=== PATIENT | male | born 1965 | race Caucasian/White ===

== ENCOUNTER 2017-06-16 15:02 | Inpatient (IN) | payer OTHER ==
--- NOTE | 2017-06-16 15:27 | PDOC ---
Rapid Medical Evaluation Time Seen by Provider: 06/16/17 15:12 Medical Evaluation: 06/16/17 15:27 The patient presents with a chief complaint of: ?peritonsillar abscess I have performed a brief in-person evaluation of this patient. Pertinent physical exam findings: vss, difficulty speaking, sent by dr. farr I have ordered the following: cbc, cmp The patient will proceed to the ED for further evaluation. 06/16/17 15:29
[2017-06-16 15:33] VITALS: BMI 31.8
--- NOTE | 2017-06-16 16:14 | PDOC ---
Attending Attestation - Resident Resident Name: Eddy Beatty - ED Attending Attestation I have performed the following: I have examined & evaluated the patient, The case was reviewed & discussed with the resident, I agree w/resident's findings & plan, Exceptions are as noted - HPI HPI: 06/16/17 17:58 Mr Abdullahi is a 51 yo M with h/o HTN and seizure disorder who presents to the ER from ENT's office Briefly, he developed a sore throat x 2 days. (+) dysphagia, (+) muffled voice, (+) unable to tolerate secretions Denies F/C He was seen at the urgent care today, sent to ENT Upon evaluation of ENT, he was sent to the ER for IV abx - Physicial Exam PE: 06/16/17 18:01 GENERAL: The patient is in no acute distress. ENT: Trismus, left tonsillar pillar fullness/erythema Ears normal, nares patent, Muffled voice NECK: Normal range of motion, supple, (+) LAD LUNGS: Breath sounds equal, clear to auscultation bilaterally. No wheezes, and no crackles. HEART:Regular rate and rhythm, normal S1 and S2 without murmur ABDOMEN: Soft, nontender - Medical Decision Making 06/16/17 18:02 51-year-old male presented to emergency department due to clinical examination consistent with peritonsillar abscess Patient referred to the hospital for admission and IV antibiotics Plan Labs Blood culture IV fluids Tylenol, Decadron Antibiotics CT soft tissue Admission
--- NOTE | 2017-06-16 16:25 | PDOC ---
History of Present Illness - General Chief Complaint: Edema Stated Complaint: THROAT PAIN (PCP SENT) Time Seen by Provider: 06/16/17 15:12 - History of Present Illness Initial Comments: 06/16/17 16:54 51 yo M with h/o HTN and seizure disorder p/w sore throat. Pt. reports development of severe, burning, sore throat within the past two days. Endorses dysphagia and decreased PO intake. States that he has been unable to tolerate oral secretions over night with increased cough, worsening neck swelling, muffled voice, and clear sputum production. Reports increased airway closure. Symptoms not improved with oral lozenges. Denies F/C, N/V,, trismus, abnormal taste, pus, airway closure, wheezing, SOB, chest pain, or lightheadedness. Reports going to urgent care today and referred to ENT ( Dr. farr today) with scope and subsequent referall to ED for IV antibiotic management. Patient currently not on antibiotic management. Recent influenza recovery. Reports similar h/o tonsilar abscess/swelling years ago. Denies N/V, F/C, CP, SOB, abdominal pain, diarrhea, constipation, urinary complaints, lightheadedness, weakness. Past History - Past Medical History Allergies/Adverse Reactions: Allergies Allergy/AdvReac Type Severity Reaction Status Date / Time Penicillins Allergy Unknown Verified 06/16/17 15:28 Home Medications: Ambulatory Orders Divalproex [Depakote -] 750 mg PO BID 06/16/17 Losartan/Hydrochlorothiazide [Losartan-Hctz 100-25 mg Tab] 1 each PO DAILY 06/16 COPD: No HTN: Yes Seizures: Yes - Immunization History Immunization Up to Date: Yes - Suicide/Smoking/Psychosocial Hx Smoking History: Never smoked Review of Systems - Review of Systems Comments:: 06/16/17 16:23 GENERAL/CONSTITUTIONAL: No fever or chills. No weakness. HEAD, EYES, EARS, NOSE AND THROAT:+ sore throat and ear pain/pressure. No change in vision. CARDIOVASCULAR: No chest pain or shortness of breath RESPIRATORY: + Cough. No wheezing, or hemoptysis. GASTROINTESTINAL: No nausea, vomiting, diarrhea or constipation. GENITOURINARY: No dysuria, frequency, or change in urination. MUSCULOSKELETAL: No joint or muscle swelling or pain. No neck or back pain. SKIN: No rash NEUROLOGIC: No headache, vertigo, loss of consciousness, or change in strength/ sensation. ENDOCRINE: No increased thirst. No abnormal weight change HEMATOLOGIC/LYMPHATIC: No anemia, easy bleeding, or history of blood clots. ALLERGIC/IMMUNOLOGIC: No hives or skin allergy. *Physical Exam - Vital Signs Last Vital Signs Temp Pulse Resp BP Pulse Ox 98.5 F 87 18 136/98 98 06/16/17 15:10 06/16/17 15:10 06/16/17 15:10 06/16/17 15:10 06/16/17 15:10 - Physical Exam Comments: 06/16/17 16:23 GENERAL: Awake, alert, and fully oriented, in no acute distress HEAD: No signs of trauma, normocephalic, atraumatic EYES: PERRLA, EOMI, sclera anicteric, conjunctiva clear ENT: Auricles normal inspection, hearing grossly normal, nares patent, oropharynx clear without exudates. Moist mucosa Throat: Slightly erythematous posterior oropharynx, with right BL tonsillar swelling, and absent uvula deviation. Absent drainage or exudate. Moist mucosa. NECK: + BL lymphadenopathy zone II of neck. Normal ROM, supple, JVD, or masses LUNGS: No distress, speaks full sentences, clear to auscultation bilaterally HEART: Regular rate and rhythm, normal S1 and S2, no murmurs, rubs or gallops, peripheral pulses normal and equal bilaterally. ABDOMEN: Soft, nontender, normoactive bowel sounds. No guarding, no rebound. No masses EXTREMITIES : Normal inspection, Normal range of motion, no edema. No clubbing or cyanosis. SKIN: Warm, Dry, normal turgor, no rashes or lesions noted ED Treatment Course - LABORATORY CBC & Chemistry Diagram: 06/16/17 17:05 06/16/17 17:05 Medical Decision Making - Medical Decision Making 06/16/17 16:25 51 yo M with h/o HTN and seizure disorder p/w development of severe, burning, sore throat within the past two days. Endorses dysphagia, decreased PO intake, and inability to tolerate oral secretions over night with increased cough, worsening neck swelling, and clear sputum production. Denies F/C, N/V, muffled voice, trismus, abnormal taste, pus, airway closure, wheezing, SOB, chest pain, or lightheadedness. Reports going to urgent care today and referred to ENT ( Dr. farr today) with scope and subsequent referral to ED for IV antibiotic management. Patient currently not on antibiotic management. Recent influenza recovery. Reports similar h/o tonsilar abscess/swelling years ago. Physical exam notable for slightly erythematous posterior oropharynx, with right BL tonsillar swelling, and absent uvula deviation. Bl zone 2 neck lymphadenopathy. Physical exam concerning for peritonsilar abscess. Will obtain imaging. 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 Centor criteria -1 points. Low suspicion of streptococcal pharyngitis. PMD not on staff. DDx: peritonsilar abscess, tonsillitis ED Course CBC, CMP, Rapid strep UA EKG, CXR, CT NECK SOFT TISSUE W/CON Cetacaine, NS, Tylenol, Zofran, Dexamethasone, IV Clindamycin 600 mg EKG: NSR with absent SUMAYA, STD, or TWI. Normal interval duration and axis. 06/16/17 17:13 WBC: 10.[address] neumann contacted and request sent for physician to physician callback [phone] 06/16/17 18:14 Dr. kirk asx of dr neumann agrees w/ plan and will come see pt tomorrow. 06/16/17 18:38 CXR: Unremarkable Patient admitted to inpt. med/surg dr. Bai. Consulted Dr. Patrick. *DC/Admit/Observation/Transfer Diagnosis at time of Disposition: Swelling of pharynx - Discharge Dispostion Admit: Yes - Referrals Referrals: ON STAFF,NOT [Primary Care Provider] - - Patient Instructions Additional Instructions: Please return to the emergency department with any new or worsening symptoms or concerns. Please follow up with your primary care physician within 72 hours. - Post Discharge Activity - Attestations Physician Attestion: 06/16/17 16:24 I attest to the information provided in this note.
[2017-06-16] MEDS ORDERED: SODIUM CHLORIDE 1,000 ML IV STA (17:06)
[2017-06-16] MEDS ORDERED: DEXAMETHASONE SOD PHOSPHATE 10 MG/1 ML VIAL IVPUSH ONE (17:06)
[2017-06-16] MEDS ORDERED: TETRACAINE/BENZOCAINE/BUTAMBEN 20 GM SPR TP ONE ×2 (17:09→18:59)
[2017-06-16] MEDS ORDERED: ONDANSETRON 4 MG/2 ML VIAL IVPUSH ONE (17:09)
[2017-06-16] MEDS ORDERED: ACETAMINOPHEN 1000 MG/100 ML VIAL (NON FORMULARY) IVPB ONE (17:09)
[2017-06-16 17:14] LABS: BASO % 0.3 % (0-2.0); EOS % 2.3 % (0-4.5); HEMATOCRIT 41.8 % (35.4-49); HEMOGLOBIN 14.3 GM/dL (11.7-16.9); LYMPH % 19.2 % (8-40); MCH 30.5 pg (25.7-33.7); MCHC 34.2 g/dl (32.0-35.9); MEAN CELL VOLUME 89.2 fl (80-96); MEAN PLT VOLUME 7.9 fl (7.5-11.1); MONO % 8.6 % (3.8-10.2); NEUT % 69.6 % (42.8-82.8); PLATELET COUNT 265 K/MM3 (134-434); RBC 4.68 M/mm3 (4.00-5.60); RDW 14.3 % (11.9-15.9); WHITE BLOOD COUNT 10.3 K/mm3 (4.0-10.0)
[2017-06-16] MEDS ORDERED: DEXAMETHASONE SOD PHOSPHATE 10 MG/1 ML VIAL ONE (17:24)
[2017-06-16] MEDS ORDERED: ACETAMINOPHEN INJECTION 100 ML IVPB ONE (17:24)
[2017-06-16] MEDS ORDERED: ONDANSETRON 4 MG/2 ML VIAL ONE (17:25)
[2017-06-16] MEDS ORDERED: CLINDAMYCIN 900 MG PREMIX IVPB 900 MG/50 ML BAG IVPB ONE ×2 (17:34→17:45)
[2017-06-16 17:42] LABS: ALBUMIN 3.8 g/dl (3.4-5.0); ALK PHOS 74 U/L (45-117); ANION GAP 6 (8-16); BILIRUBIN,TOTAL 0.3 mg/dL (0.2-1.0); BLOOD UREA NITROGEN 16 mg/dL (7-18); CHLORIDE 105 mmol/L (98-107); CO2 29 mmol/L (21-32); GLUCOSE,RANDOM 78 mg/dL (74-106); POTASSIUM 4.1 mmol/L (3.5-5.1); SGOT/AST 20 U/L (15-37); SGPT/ALT 40 U/L (12-78); SODIUM 140 mmol/L (136-145); TOT PROT 8.6 g/dl (6.4-8.2)
[2017-06-16 17:56] LABS: URINE APPEARANCE CLEAR; URINE BILIRUBIN NEGATIVE (<2.0 mg/dL); URINE BLOOD 1+ (NEGATIVE); URINE COLOR YELLOW; URINE GLUCOSE (UA) NEGATIVE (NEGATIVE); URINE KETONE NEGATIVE (NEGATIVE); URINE LEUK ESTERASE NEGATIVE (NEGATIVE); URINE NITRITE NEGATIVE (NEGATIVE); URINE PROTEIN NEGATIVE (NEGATIVE); URINE UROBILINOGEN NEGATIVE mg/dL (0.2-1.0)
[2017-06-16 18:02] LABS: EPI CELLS RARE /HPF (FEW); URINE MUCUS RARE
--- NOTE | 2017-06-16 20:18 | HP ---
Admitting History and Physical - Primary Care Physician PCP: Sharon Bai - Admission Chief Complaint: sore throat History of Present Illness: 51 yo M with h/o HTN and seizure disorder p/w sore throat. Pt. reports development of severe, burning, sore throat within the past two days. Endorses dysphagia and decreased PO intake. States that he has been unable to tolerate oral secretions over night with increased cough, worsening neck swelling, muffled voice, and clear sputum production. Reports increased airway closure. Symptoms not improved with oral lozenges. Reports going to urgent care today and referred to ENT ( Dr. farr today) with scope and subsequent referall to ED for IV antibiotic management. Patient currently not on antibiotic management. Recent influenza recovery. Reports similar h/o tonsilar abscess/ swelling years ago. 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: HTN - Smoking History Smoking history: Never smoked Home Medications - Allergies Allergies/Adverse Reactions: Allergies Allergy/AdvReac Type Severity Reaction Status Date / Time Penicillins Allergy Unknown Verified 06/16/17 15:28 - Home Medications Home Medications: Ambulatory Orders Divalproex [Depakote -] 750 mg PO BID 06/16/17 Losartan/Hydrochlorothiazide [Losartan-Hctz 100-25 mg Tab] 1 each PO DAILY 06/16 Clindamycin [Cleocin -] 300 mg PO Q6HPO #28 capsule 06/18/17 Prednisone 10 mg PO DAILY #30 tablet 06/18/17 Physical Examination Vital Signs: Vital Signs Temperature 98.5 F 06/16/17 15:10 Pulse Rate 74 06/16/17 19:32 Respiratory Rate 18 06/16/17 19:32 Blood Pressure 139/80 06/16/17 19:32 O2 Sat by Pulse Oximetry (%) 96 06/16/17 19:34 Constitutional: Yes: No Distress HENT: Yes: Other (cant open mouth much so cant see back of the throat) Neck: Yes: Supple Cardiovascular: Yes: Regular Rate and Rhythm Gastrointestinal: Yes: Normal Bowel Sounds Extremities: Yes: WNL Edema: No Peripheral Pulses WNL: Yes Labs: CBC, BMP 06/16/17 17:05 06/16/17 17:05 Problem List - Problems (1) Acute tonsillitis Assessment/Plan: iv abx full liquid diet iv steroids id and ent consult Code(s): J03.90 - ACUTE TONSILLITIS, UNSPECIFIED Qualifiers: Pharyngitis/tonsillitis etiology: streptococcus (2) Swelling of pharynx Code(s): J39.2 - OTHER DISEASES OF PHARYNX Assessment/Plan Laboratory Tests 06/16/17 06/16/17 06/16/17 17:05 17:05 17:32 WBC 10.3 H RBC 4.68 Hgb 14.3 Hct 41.8 MCV 89.2 MCH 30.5 MCHC 34.2 RDW 14.3 Plt Count 265 MPV 7.9 Neutrophils % 69.6 Lymphocytes % 19.2 Monocytes % 8.6 Eosinophils % 2.3 Basophils % 0.3 Sodium 140 Potassium 4.1 Chloride 105 Carbon Dioxide 29 Anion Gap 6 L BUN 16 Creatinine 1.0 Creat Clearance w eGFR > 60 Random Glucose 78 Calcium 9.0 Total Bilirubin 0.3 AST 20 ALT 40 Alkaline Phosphatase 74 Total Protein 8.6 H Albumin 3.8 Urine Color Yellow Urine Appearance Clear Urine pH 6.0 Ur Specific [place] 1.015 Urine Protein Negative Urine Glucose (UA) Negative Urine Ketones Negative Urine Blood 1+ H Urine Nitrite Negative Urine Bilirubin Negative Urine Urobilinogen Negative Ur Leukocyte Esterase Negative Urine WBC (Auto) <1 Urine RBC (Auto) <1 Ur Epithelial Cells Rare Urine Mucus Rare Active Medications Generic Name Dose Route Start Last Admin Trade Name Freq PRN Reason Stop Dose Admin Acetaminophen 650 mg 06/16/17 20:34 Tylenol Oral Solution - PO Q6H PRN pain Clindamycin Phosphate 300 mg in 50 mls @ 100 mls/hr 06/16/17 21:00 06/18/17 15:59 Cleocin 300 Mg Premix Ivpb IVPB 100 mls/hr Q6H-IV CHAPARRITA Administration Methylprednisolone Sodium Succinate 60 mg 06/18/17 22:00 Solu-Medrol - IVPUSH BID CHAPARRITA
[2017-06-16] MEDS ORDERED: ACETAMINOPHEN 650 MG/20.3 ML ORAL SOLUTION (CUPS) PO PRN (20:34)
[2017-06-16] MEDS: CLINDAMYCIN 300 MG PREMIX IVPB 300 MG/50 ML BAG IVPB SCH (22:11)
[2017-06-16] MEDS: methylPREDNISolone NA SUCC 40 MG/1 ML VIAL IVPUSH SCH (23:24)
[2017-06-17] MEDS: methylPREDNISolone NA SUCC 40 MG/1 ML VIAL IVPUSH SCH ×4 (02:28→20:44)
[2017-06-17] MEDS: CLINDAMYCIN 300 MG PREMIX IVPB 300 MG/50 ML BAG IVPB SCH ×4 (02:29→20:44)
[2017-06-17] MEDS ORDERED: INSULIN DETEMIR 100 UNITS/ML MDV SQ ONE (07:05)
[2017-06-17 07:59] LABS: BASO % 0.5 % (0-2.0); HEMATOCRIT 42.3 % (35.4-49); HEMOGLOBIN 14.2 GM/dL (11.7-16.9); LYMPH % 12.5 % (8-40); MCH 29.9 pg (25.7-33.7); MCHC 33.5 g/dl (32.0-35.9); MEAN CELL VOLUME 89.1 fl (80-96); MEAN PLT VOLUME 7.8 fl (7.5-11.1); MONO % 1.2 % (3.8-10.2); NEUT % 85.8 % (42.8-82.8); PLATELET COUNT 279 K/MM3 (134-434); RBC 4.75 M/mm3 (4.00-5.60); RDW 13.9 % (11.9-15.9); WHITE BLOOD COUNT 10.2 K/mm3 (4.0-10.0)
[2017-06-17 08:13] LABS: CHLORIDE 108 mmol/L (98-107); POTASSIUM 4.5 mmol/L (3.5-5.1); SODIUM 141 mmol/L (136-145)
[2017-06-17 08:27] LABS: ALBUMIN 3.3 g/dl (3.4-5.0); ALK PHOS 74 U/L (45-117); ANION GAP 7 (8-16); BILIRUBIN,TOTAL 0.3 mg/dL (0.2-1.0); BLOOD UREA NITROGEN 15 mg/dL (7-18); CALCIUM 8.5 mg/dL (8.5-10.1); CO2 26 mmol/L (21-32); CREATININE 0.9 mg/dL (0.7-1.3); GLUCOSE,RANDOM 134 mg/dL (74-106); SGOT/AST 14 U/L (15-37); SGPT/ALT 34 U/L (12-78); TOT PROT 8.2 g/dl (6.4-8.2)
[2017-06-17] MEDS ORDERED: PT OWN MED DRAWER 7, Y5N ONE ×2 (09:25→16:07)
--- NOTE | 2017-06-17 13:30 | PN ---
Progress Note, Physician - Current Medication List Current Medications: Active Medications Acetaminophen (Tylenol Oral Solution -) 650 mg PO Q6H PRN PRN Reason: pain Clindamycin Phosphate (Cleocin 300 Mg Premix Ivpb) 300 mg in 50 mls @ 100 mls/ hr IVPB Q6H-IV CHAPARRITA Last Admin: 06/17/17 09:38 Dose: 100 mls/hr Methylprednisolone Sodium Succinate (Solu-Medrol -) 60 mg IVPUSH Q6H-IV CHAPARRITA Last Admin: 06/17/17 09:38 Dose: 60 mg - Objective Vital Signs: Vital Signs Temperature 98.6 F 06/17/17 09:00 Pulse Rate 83 06/17/17 09:00 Respiratory Rate 18 06/17/17 09:00 Blood Pressure 142/50 06/17/17 09:00 O2 Sat by Pulse Oximetry (%) 97 06/17/17 09:00 Labs: CBC, BMP 06/17/17 06:20 06/17/17 06:20
--- NOTE | 2017-06-17 17:17 | PN ---
Progress Note, Physician - Current Medication List Current Medications: Active Medications Acetaminophen (Tylenol Oral Solution -) 650 mg PO Q6H PRN PRN Reason: pain Clindamycin Phosphate (Cleocin 300 Mg Premix Ivpb) 300 mg in 50 mls @ 100 mls/ hr IVPB Q6H-IV CHAPARRITA Last Admin: 06/17/17 16:09 Dose: 100 mls/hr Methylprednisolone Sodium Succinate (Solu-Medrol -) 60 mg IVPUSH Q6H-IV CHAPARRITA Last Admin: 06/17/17 16:09 Dose: 60 mg - Objective Vital Signs: Vital Signs Temperature 97.3 F L 06/17/17 14:08 Pulse Rate 88 06/17/17 14:08 Respiratory Rate 22 06/17/17 14:08 Blood Pressure 131/64 06/17/17 14:08 O2 Sat by Pulse Oximetry (%) 97 06/17/17 09:00 Constitutional: Yes: No Distress HENT: Yes: Other (throat able to see a little red and inflammed more on left side) Cardiovascular: Yes: Regular Rate and Rhythm Respiratory: Yes: CTA Bilaterally Gastrointestinal: Yes: Normal Bowel Sounds Extremities: Yes: WNL Neurological: Yes: Alert, Oriented Labs: CBC, BMP 06/17/17 06:20 06/17/17 06:20 Problem List - Problems (1) Acute tonsillitis Assessment/Plan: iv abx iv steroids soft diet \clinically improving Code(s): J03.90 - ACUTE TONSILLITIS, UNSPECIFIED Qualifiers: Pharyngitis/tonsillitis etiology: streptococcus (2) Swelling of pharynx Code(s): J39.2 - OTHER DISEASES OF PHARYNX
--- NOTE | 2017-06-17 18:23 | CON.ENT ---
Consult Consult Specialty:: ENT Reason for Consultation:: Sore throat/trouble swallowing - History of Present Illness Chief Complaint: Severe sore throat/trouble swallowing secretions History of Present Illness: 51 yo male who developed worsening sore throat, trouble swallowing and hot- potato voice over the weekend. He was seen by me in the office yesterday at which time i sent him to the ER for IV antibiotics/steroids/hydration for an acute tonsillitis. He had peritonsillar cellulitis(L>R) and a patent airway. He is feeling much better since on Clinda and Medrol. 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: Yes: HTN - Alcohol/Substance Use Hx Alcohol Use: No - Smoking History Smoking history: Never smoked Home Medications - Allergies Allergies/Adverse Reactions: Allergies Allergy/AdvReac Type Severity Reaction Status Date / Time Penicillins Allergy Unknown Verified 06/16/17 15:28 - Home Medications Home Medications: Ambulatory Orders Divalproex [Depakote -] 750 mg PO BID 06/16/17 Losartan/Hydrochlorothiazide [Losartan-Hctz 100-25 mg Tab] 1 each PO DAILY 06/16 Review of Systems - Review of Systems HENT: reports: Difficult Swallowing, Throat Pain Neck: reports: Swollen Glands, Tenderness Physical Exam-ENT Vital Signs: Vital Signs Temperature 97.3 F L 06/17/17 14:08 Pulse Rate 88 06/17/17 14:08 Respiratory Rate 22 06/17/17 14:08 Blood Pressure 131/64 06/17/17 14:08 O2 Sat by Pulse Oximetry (%) 97 06/17/17 09:00 Constitutional: Yes: Well Nourished, No Distress Face: Yes: WNL Eyes: Yes: WNL Nose: Yes: Septum Deviated Nasal Passage: Yes: WNL Oral/Pharynx: Yes: Enlarged Tonsils, Other (decreased soft palate and tonsillar edema, uvula midline) Outer Ear: Yes: WNL Ear Canal: Yes: WNL Neck: Yes: Lymphadenopathy, Tenderness Respiratory: Yes: WNL Neurological: Yes: Cran Nerves II-XII Intact Imaging - Results Cat Scan: Report Reviewed, Image Reviewed Problem List - Problems (1) Acute tonsillitis Assessment/Plan: Pt feeling much better since receiving IV meds, less peritonsillar swelling, swallowing and voice improved, taking PO well and tolerating secretions. Can send patient home in the AM on PO Clinda with ENT follow-up in the office in 2- 3 days. Code(s): J03.90 - ACUTE TONSILLITIS, UNSPECIFIED Qualifiers: Pharyngitis/tonsillitis etiology: streptococcus
[2017-06-18] MEDS: methylPREDNISolone NA SUCC 40 MG/1 ML VIAL IVPUSH SCH ×3 (02:20→15:59)
[2017-06-18] MEDS: CLINDAMYCIN 300 MG PREMIX IVPB 300 MG/50 ML BAG IVPB SCH ×3 (02:24→15:59)
[2017-06-18] MEDS ORDERED: PT OWN MED DRAWER 7, Y5N ONE ×2 (10:09→15:54)
--- NOTE | 2017-06-18 11:47 | CON.ID ---
Consult Consult Specialty:: infectious diseases Reason for Consultation:: throat swelling ,inability to swallow - History of Present Illness Chief Complaint: swelling of the throat History of Present Illness: 51 yo male who developed worsening sore throat, trouble swallowing and hot- potato voice over the weekend. patient went to the ent and was evaluated and was send to the hospital and for iv abx / He had peritonsillar cellulitis(L>R) and a patent airway. He is feeling much better since on Clinda and Medrol. 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/Vascular: Yes: HTN - Alcohol/Substance Use Hx Alcohol Use: No - Smoking History Smoking history: Never smoked Home Medications - Allergies Allergies/Adverse Reactions: Allergies Allergy/AdvReac Type Severity Reaction Status Date / Time Penicillins Allergy Unknown Verified 06/16/17 15:28 - Home Medications Home Medications: Ambulatory Orders Divalproex [Depakote -] 750 mg PO BID 06/16/17 Losartan/Hydrochlorothiazide [Losartan-Hctz 100-25 mg Tab] 1 each PO DAILY 06/16 Review of Systems - Review of Systems Constitutional: reports: No Symptoms Eyes: reports: No Symptoms HENT: reports: No Symptoms Neck: reports: No Symptoms Cardiovascular: reports: No Symptoms Respiratory: reports: No Symptoms Gastrointestinal: reports: Other (sore throat and swallowing difficuilty) Musculoskeletal: reports: No Symptoms Integumentary: reports: No Symptoms Neurological: reports: No Symptoms Endocrine: reports: No Symptoms Hematology/Lymphatic: reports: No Symptoms Psychiatric: reports: No Symptoms Physical Exam Vital Signs: Vital Signs Temperature 97.8 F 06/18/17 06:00 Pulse Rate 69 06/18/17 06:00 Respiratory Rate 20 06/18/17 06:00 Blood Pressure 144/94 06/18/17 06:00 O2 Sat by Pulse Oximetry (%) 98 06/17/17 21:00 Constitutional: Yes: Well Nourished, Calm, Mild Distress Eyes: Yes: Conjunctiva Clear Neck: Yes: Other (sore throat) Cardiovascular: Yes: Regular Rate and Rhythm Respiratory: Yes: Regular, Other (sore throat) Gastrointestinal: Yes: Normal Bowel Sounds, Soft Musculoskeletal: Yes: WNL Extremities: Yes: WNL Neurological: Yes: Alert, Oriented Psychiatric: Yes: Alert, Oriented Labs: CBC, BMP 06/17/17 06:20 06/17/17 06:20 Imaging - Results Cat Scan: Report Reviewed, Image Reviewed Assessment/Plan Problem List - Problems (1) Acute tonsillitis Code(s): J03.90 - ACUTE TONSILLITIS, UNSPECIFIED Qualifiers: Pharyngitis/tonsillitis etiology: streptococcus plan patient stable doing well throat improving continue clinda
--- NOTE | 2017-06-18 12:08 | PN ---
Progress Note, Physician History of Present Illness: patient doing well says swallowing better still with swallowing difficulty - Current Medication List Current Medications: Active Medications Acetaminophen (Tylenol Oral Solution -) 650 mg PO Q6H PRN PRN Reason: pain Clindamycin Phosphate (Cleocin 300 Mg Premix Ivpb) 300 mg in 50 mls @ 100 mls/ hr IVPB Q6H-IV CHAPARRITA Last Admin: 06/18/17 10:14 Dose: 100 mls/hr Methylprednisolone Sodium Succinate (Solu-Medrol -) 60 mg IVPUSH Q6H-IV CHAPARRITA Last Admin: 06/18/17 10:15 Dose: 60 mg - Objective Vital Signs: Vital Signs Temperature 97.8 F 06/18/17 06:00 Pulse Rate 69 06/18/17 06:00 Respiratory Rate 20 06/18/17 06:00 Blood Pressure 144/94 06/18/17 06:00 O2 Sat by Pulse Oximetry (%) 98 06/17/17 21:00 Constitutional: Yes: No Distress, Calm Cardiovascular: Yes: Regular Rate and Rhythm Respiratory: Yes: Regular, CTA Bilaterally Gastrointestinal: Yes: Normal Bowel Sounds, Soft Musculoskeletal: Yes: WNL Extremities: Yes: WNL Neurological: Yes: Alert, Oriented Labs: CBC, BMP 06/17/17 06:20 06/17/17 06:20 Assessment/Plan Problem List - Problems (1) Acute tonsillitis Code(s): J03.90 - ACUTE TONSILLITIS, UNSPECIFIED Qualifiers: Pharyngitis/tonsillitis etiology: streptococcus plan patient stable doing well throat improving continue clinda if patient continues to do well can be switched to oral clinda 300 mg every 6 hourly for another 7 days
--- NOTE | 2017-06-18 13:21 | EKG ---
Test Reason : Blood Pressure : / mmHG Vent. Rate : 082 BPM Atrial Rate : 082 BPM P-R Int : 150 ms QRS Dur : 088 ms QT Int : 372 ms P-R-T Axes : 043 037 037 degrees QTc Int : 434 ms NORMAL SINUS RHYTHM WITH SINUS ARRHYTHMIA NORMAL ECG NO PREVIOUS ECGS AVAILABLE Confirmed by ATIF MARINO, MACK ([id number]) on 06/18/2017 1:21:12 PM Referred By: Confirmed By:MACK SRIVASTAVA MD
--- NOTE | 2017-06-18 17:14 | PN ---
Progress Note, Physician History of Present Illness: doing well - Current Medication List Current Medications: Active Medications Acetaminophen (Tylenol Oral Solution -) 650 mg PO Q6H PRN PRN Reason: pain Clindamycin Phosphate (Cleocin 300 Mg Premix Ivpb) 300 mg in 50 mls @ 100 mls/ hr IVPB Q6H-IV CHAPARRITA Last Admin: 06/18/17 15:59 Dose: 100 mls/hr Methylprednisolone Sodium Succinate (Solu-Medrol -) 60 mg IVPUSH BID CHAPARRITA - Objective Vital Signs: Vital Signs Temperature 97.8 F 06/18/17 06:00 Pulse Rate 69 06/18/17 06:00 Respiratory Rate 20 06/18/17 06:00 Blood Pressure 144/94 06/18/17 06:00 O2 Sat by Pulse Oximetry (%) 98 06/17/17 21:00 Constitutional: Yes: No Distress Neck: Yes: Supple Cardiovascular: Yes: Regular Rate and Rhythm Respiratory: Yes: CTA Bilaterally Gastrointestinal: Yes: Normal Bowel Sounds Extremities: Yes: WNL Edema: No Peripheral Pulses WNL: Yes Neurological: Yes: Alert, Oriented Labs: CBC, BMP 06/17/17 06:20 06/17/17 06:20 Problem List - Problems (1) Acute tonsillitis Assessment/Plan: iv abx soft diet iv steroids taper Code(s): J03.90 - ACUTE TONSILLITIS, UNSPECIFIED Qualifiers: Pharyngitis/tonsillitis etiology: streptococcus (2) Swelling of pharynx Code(s): J39.2 - OTHER DISEASES OF PHARYNX
[2017-06-18] MEDS ORDERED: PATIENT'S OWN MEDICATION (NON-FORMULARY) (Losartan/Hydrochlorothiazide [Losartan-Hctz 100- PO SCH (18:45)
[2017-06-18 18:54] VITALS: BP 137/87; PULSE 75; TEMP 97.4
[2017-06-18] MEDS ORDERED: HYDROCHLOROTHIAZIDE 25 MG TABLET (FP) PO SCH (19:45)
[2017-06-18] MEDS ORDERED: LOSARTAN POTASSIUM 50 MG TABLET (FP) PO SCH (19:45)
[2017-06-18] MEDS ORDERED: DIVALPROEX SODIUM 250 MG TABLET E.C. PO SCH (22:00)
[2017-06-18] MEDS ORDERED: methylPREDNISolone NA SUCC 40 MG/1 ML VIAL IVPUSH SCH (22:00)
--- NOTE | 2017-06-20 17:22 | DS ---
Physical Examination Vital Signs: Vital Signs Temperature 97.4 F L 06/18/17 18:00 Pulse Rate 75 06/18/17 18:00 Respiratory Rate 20 06/18/17 18:00 Blood Pressure 137/87 06/18/17 18:00 O2 Sat by Pulse Oximetry (%) 98 06/18/17 09:00 Labs: CBC, BMP 06/17/17 06:20 06/17/17 06:20 Discharge Summary Reason For Visit: SWELLING OF PHARYNX - Instructions Diet, Activity, Other Instructions: Please return to the emergency department with any new or worsening symptoms or concerns. Please follow up with your primary care physician within 72 hours. Referrals: ON STAFF,NOT [Primary Care Provider] - Disposition: AGAINST MEDICAL ADVICE - Home Medications Comprehensive Discharge Medication List: Ambulatory Orders Divalproex [Depakote -] 750 mg PO BID 06/16/17 Losartan/Hydrochlorothiazide [Losartan-Hctz 100-25 mg Tab] 1 each PO DAILY 06/16 Clindamycin [Cleocin -] 300 mg PO Q6HPO #28 capsule 06/18/17 Prednisone 10 mg PO DAILY #30 tablet 06/18/17 pt alejandra
== END 2017-06-18 22:00 | disposition left against medical advice (07) | DRG 113 ==
LOC: JER 15:02 → JERBED 18:43 → J5S 21:43
PROVIDERS: ADMIT Internal Medicine; ATTEND Internal Medicine
DX: J03.00 Acute streptococcal tonsillitis, unspecified (principal); I10 Essential (primary) hypertension; G40.909 Epilepsy, unspecified, not intractable, without status epilepticus; Z88.0 Allergy status to penicillin; R13.10 Dysphagia, unspecified; R59.1 Generalized enlarged lymph nodes
CPT/HCPCS: 36415; 70491-TC; 71045-TC-FY; 80053; 81003; 81015; 85025; 87070; 87077; 87430; 93005; 93010; 99283-25; J0131; J1100; J7030